=== PATIENT | female | born 1980 | race Two or more races ===

== ENCOUNTER 2017-11-23 15:52 | Emergency (ER) | payer BC ==
[~2017-11-23] VITALS: Ht 160 cm; Wt 55.3 kg
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
--- NOTE | 2017-11-23 16:20 | NUR ---
20G LEFT AC IV STARTED, BLOOD SAMPLE OBTAINED AND SENT TO LAB. MEDICATED PT ORDERED
[2017-11-23] MEDS ORDERED: ONDANSETRON HCL/PF 4 MG/2 ML VIAL ONE (16:28)
[2017-11-23] MEDS ORDERED: ONDANSETRON HCL/PF 4 MG/2 ML VIAL IVP ONE (16:30)
[2017-11-23] MEDS ORDERED: IV NS 0.9% 1,000 ML BAG IV ONE (16:30)
[2017-11-23] MEDS ORDERED: ACETAMINOPHEN ES 500 MG TABLET ONE (16:38)
[2017-11-23 16:39] LABS: BASOPHILS # (AUTO) 0.1 /CMM (0.0-0.2); BASOPHILS % (AUTO) 0.6 % (0.0-2.0); EOSINOPHILS # (AUTO) 0.1 /CMM (0.0-0.7); HEMATOCRIT 36 % (33-45); HEMOGLOBIN 12.4 g/dL (11.5-14.8); LYMPHOCYTES # (AUTO) 1.6 /CMM (0.8-4.8); LYMPHOCYTES % (AUTO) 12.5 % (20.0-44.0); MEAN CORPUSCULAR HEMOGLOBIN 30 PG (26.0-33.0); MEAN CORPUSCULAR HGB CONC 34 g/dl (31.0-36.0); MEAN CORPUSCULAR VOLUME 87 fL (82-100); MONOCYTES # (AUTO) 0.8 /CMM (0.1-1.30); MONOCYTES % (AUTO) 6.2 % (2.0-12.0); NEUTROPHILS # (AUTO) 10.4 /CMM (1.8-8.9); NEUTROPHILS % (AUTO) 79.7 % (43.0-81.0); PLATELET COUNT (AUTO) 324 /CMM (150-450); RDW COEFFICIENT OF VARIATION 12.7 (11.5-15.0); RED BLOOD CELL COUNT(AUTO) 4.16 MIL/uL (4.0-5.2)
[2017-11-23 16:41] LABS: APPEARANCE,URINE Clear (CLEAR); BILIRUBIN,URINE Negative (NEGATIVE); BLOOD, URINE Moderate Ery/uL (NEGATIVE); COLOR,URINE Yellow (YELLOW); KETONES,URINE Trace (NEGATIVE); LEUKOCYTE ESTERASE ,URINE Negative (NEGATIVE); NITRITE, URINE Negative (NEGATIVE); PROTEIN,URINE Negative (NEGATIVE); UGLUCOSE Negative (NEGATIVE); UROBILINOGEN,URINE 0.2 EU/dL (0.2)
[2017-11-23 16:48] LABS: CALCIUM, SERUM 8.8 mg/dL (8.5-10.1); CREATININE 0.6 mg/dL (0.6-1.3); POTASSIUM 3.9 mmol/L (3.5-5.1)
[2017-11-23 16:54] LABS: ALBUMIN 3.6 g/dL (3.4-5.0); BILIRUBIN,DIRECT 0.1 mg/dL (0.0-0.2); BILIRUBIN,TOTAL 0.3 mg/dL (0.2-1.0); TOTAL PROTEIN, SERUM 6.8 g/dL (6.4-8.2)
[2017-11-23] MEDS ORDERED: ACETAMINOPHEN 325 MG TABLET PO ONE (17:00)
[2017-11-23] MEDS ORDERED: MORPHINE SULFATE INJ 4 MG/ML DISP.SYRIN ONE (17:15)
[2017-11-23 17:25] LABS: BACTERIA,URINE Rare /HPF (None Seen); SQUAMOUS EPITHELIAL CELL,UR Few /HPF (None Seen); WBC,URINE 0-2 /HPF (0-3)
[2017-11-23] MEDS ORDERED: MORPHINE SULFATE INJ 2 MG/ML DISP.SYRIN IV ONE (17:30)
--- NOTE | 2017-11-23 18:59 | NUR ---
REPORT TAKEN FROM CIERA
[2017-11-23 19:11] VITALS: BP 123/89
== END 2017-11-23 19:12 | disposition home or self-care (01) ==
LOC: ER 15:55
DX: R10.32 Left lower quadrant pain (principal); R11.0 Nausea; N85.8 Other specified noninflammatory disorders of uterus; F17.200 Nicotine dependence, unspecified, uncomplicated
CPT/HCPCS: 36415; 80048-TC; 80076-TC; 81000-TC; 84702-TC; 84703-TC; 85025-TC; A4606; J2405; Z7610

== ENCOUNTER 2021-10-06 10:35 | Emergency (ER) | payer SELFPAY ==
[~2021-10-06] VITALS: Ht 160 cm; Wt 54.4 kg
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
[2021-10-06] MEDS ORDERED: ACETAMINOPHEN ES 500 MG TABLET PO ONE (11:00)
[2021-10-06] MEDS ORDERED: ACETAMINOPHEN ES 500 MG TABLET ONE (11:02)
--- NOTE | 2021-10-06 11:08 | NUR ---
URINE SAMPLE OBTAINED AND SENT TO LAB
--- NOTE | 2021-10-06 11:41 | NUR ---
PT TAKEN TO CT
--- NOTE | 2021-10-06 11:50 | NUR ---
PT RETURNED FROM CT
[2021-10-06 12:11] VITALS: BP 165/90
--- NOTE | 2021-10-06 12:11 | NUR ---
Patient discharged to home in stable condition. Written and verbal after care instructions given. Patient verbalizes understanding of instruction.
== END 2021-10-06 12:12 | disposition home or self-care (01) ==
LOC: ER 10:41
DX: I10 Essential (primary) hypertension (principal); F41.9 Anxiety disorder, unspecified
CPT/HCPCS: 70450-TC; 84703-TC

== ENCOUNTER 2025-01-01 16:20 | Emergency (ER) | payer MEDICAID ==
[~2025-01-01] VITALS: Ht 160 cm; Wt 57.2 kg
[2025-01-01 16:43] VITALS: BP 112/100; TEMP 98.2; O2SAT 99
[2025-01-01] MEDS ORDERED: KETOROLAC TROMETHAMINE 15 MG/ML VIAL ONE (17:30)
[2025-01-01] MEDS: KETOROLAC TROMETHAMINE 15 MG/ML VIAL IM ONE (17:36)
[2025-01-01] MEDS ORDERED: IBUP-1490 PO (18:12)
== END 2025-01-01 19:27 | disposition home or self-care (01) ==
LOC: ER 16:25
DX: M25.562 Pain in left knee (principal); F17.200 Nicotine dependence, unspecified, uncomplicated; W01.0XXA Fall on same level from slipping, tripping and stumbling without subsequent striking against object, initial encounter; Y93.89 Activity, other specified; Y92.89 Other specified places as the place of occurrence of the external cause; Y99.8 Other external cause status
CPT/HCPCS: 29505; 73564; 96372; 99283; J1885